=== PATIENT | female | born 1995 | race Caucasian/White ===

== ENCOUNTER 2021-07-20 20:31 | Emergency (ER) | payer OTHER ==
[2021-07-20 22:20] LABS: BASOPHIL 0.6 % (0-2); EOSINOPHIL 3.1 % (0-5); HCT 39.1 % (37.0-47.0); HGB 12.7 g/dl (12.5-16.0); LYMPHOCYTE 25.7 % (15-48); MCH 28.9 pg (25.0-31.0); MCHC 32.5 g/dL (32.0-36.0); MCV 89.1 fL (78.0-100.0); MONOCYTE 8.9 % (0-12); MPV 10.5 fL (6.0-9.5); NEUTROPHIL 61.4 % (41-80); NRBC 0; PLT 343 K/uL (150-400); RBC 4.39 M/uL (4.20-5.40); RDW 12.6 % (11.5-14.0); WBC 10.2 K/uL (4.0-10.5)
[2021-07-20 22:42] LABS: CREATININE 0.91 mg/dL (0.51-0.95); POTASSIUM 3.7 mmol/L (3.5-5.1)
[2021-07-20] MEDS ORDERED: CLEOCIN300 MG PO (22:55)
[2021-07-20] MEDS ORDERED: ULTRAM50 MG PO (22:55)
== END 2021-07-20 23:20 | disposition home or self-care (01) ==
LOC: FER 20:31
PROVIDERS: Nurse Practitioner Family
DX: L03.031 Cellulitis of right toe (principal); K21.9 Gastro-esophageal reflux disease without esophagitis; Z79.899 Other long term (current) drug therapy
CPT/HCPCS: 36415; 73630; 80048; 85025

== ENCOUNTER 2022-01-08 19:01 | Emergency (ER) | payer OTHER ==
[~2022-01-08 19:01] MED LIST: CLEOCIN300 MG PO; ULTRAM50 MG PO
[2022-01-08 20:01] LABS: BASOPHIL 0.7 % (0-2); EOSINOPHIL 2.6 % (0-5); HCT 40.4 % (37.0-47.0); HGB 13.7 g/dl (12.5-16.0); LYMPHOCYTE 20.9 % (15-48); MCH 29.3 pg (25.0-31.0); MCHC 33.9 g/dL (32.0-36.0); MCV 86.5 fL (78.0-100.0); MONOCYTE 7.5 % (0-12); NRBC 0; PLT 353 K/uL (150-400); RBC 4.67 M/uL (4.20-5.40); RDW 12.4 % (11.5-14.0); WBC 12.1 K/uL (4.0-10.5)
[2022-01-08 20:02] LABS: AMPHETAMINES NEGATIVE (NEGATIVE); BARBITURATES NEGATIVE (NEGATIVE); ECSTASY (MDMA) NEGATIVE (NEGATIVE); MARIJUANA (THC) NEGATIVE (NEGATIVE); METHADONE NEGATIVE (NEGATIVE); OPIATES NEGATIVE (NEGATIVE); OXYCODONE NEGATIVE (NEGATIVE)
[2022-01-08 20:03] LABS: BILIRUBIN NEGATIVE (NEGATIVE); BLOOD NEGATIVE Ery/uL (NEGATIVE); CLARITY CLEAR (CLEAR); COLOR YELLOW (YELLOW); GLUCOSE (U) NORMAL (NORMAL); LEUKOCYTES NEGATIVE Leu/uL (NEGATIVE); NITRITE NEGATIVE (NEGATIVE); PROTEIN NEGATIVE (NEGATIVE); SPECIFIC GRAVITY >=1.030 (1.001-1.030); UROBILINOGEN 0.2 mg/dL (0.2-1.0)
[2022-01-08 20:25] LABS: ALBUMIN 4.1 g/dL (3.4-5.0); ALKALINE PHOSHATASE 162 U/L (46-116); ALT 17 U/L (14-59); AST 10 U/L (15-37); BILIRUBIN - TOTAL 0.6 mg/dL (0.2-1.0); BUN 13 mg/dL (7-18); BUN/CREAT RATIO (CALC) 13.3 RATIO; CO2 (BICARBONATE) 28 mmol/L (21-32); CREATININE 0.98 mg/dL (0.51-0.95); GLOBULIN (CALCULATION) 3.7 g/dL; GLUCOSE 88 mg/dL (74-106); TOTAL PROTEIN 7.8 g/dL (6.4-8.2)
[2022-01-08 20:33] LABS: CHLORIDE 102 mmol/L (98-107); POTASSIUM 3.4 mmol/L (3.5-5.1)
[2022-01-08 20:53] LABS: CORONAVIRUS 2019 SARS-COV-2 NEGATIVE (NEGATIVE); INFLUENZA A NAA NEGATIVE (NEGATIVE)
== END 2022-01-08 21:55 | disposition home or self-care (01) ==
LOC: FER 19:01
PROVIDERS: Nurse Practitioner Family
DX: R55 Syncope and collapse (principal); R51.9 Headache, unspecified; Z20.822 Contact with and (suspected) exposure to COVID-19
CPT/HCPCS: 36415; 71045; 80053; 80305; 81003; 84484; 85025; 93005; J1885; J2405; J7030; U0002